=== PATIENT | female | born 1940 | race Two or more races ===

== ENCOUNTER 2019-05-03 07:00 | Day surgery (SDC) | payer OTHER ==
[~2019-05-03 07:00] MED LIST: AMARYL; BISOPROLOL FUMAR5 MG; HUMUL; LEVOXYL75 MCG; LEVSIN0.125 MG PO; PEPCID40 MG; PROTONIX40 M1; SYNTHROID50 MCG; ZIAC 5/6.25 MG1 TAB; bentyl PO
[2019-05-03] MEDS ORDERED: HUMULIN 70100 UNIT/2 (07:22)
[2019-05-03] MEDS ORDERED: METRONIDAZOLE60 GM (07:23)
[2019-05-03] MEDS ORDERED: ROSUVASTATIN CA20 MG PO (07:23)
[2019-05-03] MEDS ORDERED: DESONIDE15 GM TOP (07:23)
[2019-05-03] MEDS ORDERED: BISOPROLOL-HCT1 EAC1 PO (07:23)
[2019-05-03] MEDS ORDERED: FOLIC ACID1 MG PO (07:24)
[2019-05-03] MEDS ORDERED: INSULIN SYRING (07:24)
[2019-05-03] MEDS ORDERED: DICYCLOMINE HCL20 MG (07:25)
[2019-05-03] MEDS ORDERED: OXYC1TAB9 PO (16:41)
[2019-05-03] MEDS ORDERED: DUI500 PO (16:41)
== END 2019-05-03 13:00 | disposition home or self-care (01) ==
LOC: CIR.AMB 07:00 → EDSTATUS 14:30 → SURH 15:28 → O/R 19:00
DX: S43.431A Superior glenoid labrum lesion of right shoulder, initial encounter (principal); M66.311 Spontaneous rupture of flexor tendons, right shoulder; M75.121 Complete rotator cuff tear or rupture of right shoulder, not specified as traumatic